=== PATIENT | female | born 1985 | race African-American/Black ===

== ENCOUNTER 2018-05-13 10:10 | Emergency (ER) | payer MEDICARE, OTHER ==
[~2018-05-13] VITALS: Ht 154.9 cm; Wt 92.5 kg
[~2018-05-13 10:10] MED LIST: AMLO5TAB7 PO; FAMO20TA5 PO; HYDR-2869 PO; OMEP20TA8 PO; QUET300T6 PO
[2018-05-13 10:20] VITALS: BP 151/91
[2018-05-13 10:36] LABS: BILIRUBIN,URINE NEGATIVE (NEG); CLARITY,URINE CLEAR; COLOR,URINE YELLOW; NITRITE,URINE NEGATIVE (NEG); PH,URINE 7.5; PROTEIN,URINE NEGATIVE (NEG-TRACE); UROBILINOGEN,URINE 0.2 mg/dL (0.2 mg/dL)
[2018-05-13 10:47] LABS: BACTERIA,URINE 0 /HPF (0-FEW); RBC,URINE 0 /HPF (0-2); SQUAMOUS EPITHELIAL CELL,UR FEW /LPF; WBC,URINE 0 /HPF (0-4)
[2018-05-13 10:56] LABS: BASO % 1 % (0-3); EOS # 0.1 x10^3/uL (0.0-0.7); EOS % 1 % (0-3); HEMATOCRIT 38.2 % (36.0-47.0); HEMOGLOBIN 13.6 g/dL (12.0-15.5); LYMPH # 1.5 x10^3/uL (1.0-4.8); LYMPH % 19 % (24-48); MEAN CORPUSCULAR HEMOGLOBIN 33 pg (25-35); MEAN CORPUSCULAR HGB CONC 36 g/dL (31-37); MEAN CORPUSCULAR VOLUME 93 fL (79-100); MONO # 0.8 x10^3/uL (0.0-1.1); MONO % 10 % (0-9); NEUT # 5.7 x10^3uL (1.8-7.7); NEUT % 70 % (31-73); PLATELET COUNT 282 x10^3/uL (140-400); RED BLOOD COUNT 4.13 x10^6/uL (3.50-5.40); RED CELL DISTRIBUTION WIDTH 15.3 % (11.5-14.5); WHITE BLOOD COUNT 8.2 x10^3/uL (4.0-11.0)
[2018-05-13 11:07] LABS: CALCIUM 8.8 mg/dL (8.5-10.1); CREATININE 0.7 mg/dL (0.6-1.0); GFR 116.6; POTASSIUM 3.6 mmol/L (3.5-5.1)
--- NOTE | 2018-05-13 12:07 | RAD ---
Indication: Vaginal bleeding TECHNIQUE: Ultrasound OB less than 14 weeks comparison: None FINDINGS: The uterus is anteverted and measures 12.8 x 6.0 x 8.6 cm (longitudinal, AP, transverse). Single intrauterine is seen. The right ovary measures 2.9 x 2.2 x 2.5 cm and demonstrates evidence of blood flow. The cervical length measures 3.4 cm in length and is closed. Placenta is anterior in position. The crown-rump length measures 4.7 cm corresponding to gestation age of 11 weeks 3 days. Heart rate is seen in the rate of 171 bpm. Left ovary is not seen secondary to overlying bowel gas. Yolk sac is not seen. IMPRESSION: 1. Single live viable intrauterine with estimated gestation age of 11 weeks 3 days and due date of 11/29/2018. 2. Left ovary not visualized. Electronically signed by: Gómez Hardwick DO (05/13/2018 12:03 PM) [id number]
--- NOTE | 2018-05-13 16:19 | PHYS DOC ---
Past Medical History Past Medical History: Bipolar, High Cholesterol, Hypertension, Schizophrenia Additional Past Medical Histor: CYST R. BREAST Past Surgical History: , Other Additional Past Surgical Histo: abd surgery, right breast cyst removal Alcohol Use: None Drug Use: Marijuana, Phencyclidine Social History Narrative: denies at this time during Adult General Chief Complaint Chief Complaint: VAGINAL BLEEDING [facility] HPI Patient is a 32 year old female who presents with vaginal bleeding in the setting of . Patient is approx 12 weeks gestation. Earlier today, the patient had an episode of spotting. She describes a scant amount of red blood that she noticed in her underpants. She then went to the restroom and urinated and did not perceive that the blood was coming from her urine. She has not had urinary symptoms. No pelvic pain. No loss of fluid or vaginal discharge. She has had no recent fever or chills. The patient is sexually active with her only. Patient has had 4 prior miscarriages, all prior to 12 weeks' gestation. She has 2 living children. She had one prior elective . Review of Systems Review of Systems Constitutional: Denies fever Eyes: Denies change in visual acuity HENT: Denies nasal congestion Respiratory: Denies cough or shortness of breath Cardiovascular: No additional information not addressed in HPI GI: Denies abdominal pain, nausea : Denies dysuria Musculoskeletal: Denies back pain Integument: Denies rash Neurologic: Denies headache All other systems were reviewed and found to be within normal limits, except as documented in this note. Allergies Allergies Allergies Coded Allergies Type Severity Reaction Last Updated Verified latex Allergy Intermediate With latex condom pt has vag d/c, itching. 01/01/16 Yes Physical Exam Physical Exam Constitutional: Well developed, well nourished, no acute distress, non-toxic appearance HENT: Normocephalic, atraumatic, bilateral external ears normal, oropharynx moist Eyes: PERRLA, EOMI, conjunctiva normal Neck: Normal range of motion, no tenderness Cardiovascular:Heart rate regular rhythm Lungs & Thorax: Bilateral breath sounds clear to auscultation Abdomen: Bowel sounds normal, soft, no tenderness Skin: Warm, dry, no erythema, no rash Back: No tenderness Extremities: No tenderness Neurologic: Alert and oriented X 3 Psychologic: Affect normal Pelvic exam: normal female external genitalia. Vaginal mucosa is moist and uninflamed. Cervical os is closed. There is no active bleeding or blood from the os. There is a scant amount of brown old-appearing blood in the vault. There is no cervical motion tenderness. No abnormal discharge. No adnexal tenderness or masses. Current Patient Data Vital Signs Vital Signs Date Time Temp Pulse Resp B/P (MAP) Pulse Ox O2 Delivery O2 Flow Rate FiO2 05/13/18 10:20 97.9 93 18 151/91 (111) 97 Room Air 97.9 Lab Values Laboratory Tests Test 05/13/18 10:20 05/13/18 10:40 Urine Collection Type Unknown Urine Color Yellow Urine Clarity Clear Urine pH 7.5 Urine Specific [place] 1.020 Urine Protein Negative mg/dL (NEG-TRACE) Urine Glucose (UA) Negative mg/dL (NEG) Urine Ketones (Stick) Negative mg/dL (NEG) Urine Blood Negative (NEG) Urine Nitrite Negative (NEG) Urine Bilirubin Negative (NEG) Urine Urobilinogen Dipstick 0.2 mg/dL (0.2 mg/dL) Urine Leukocyte Esterase Negative (NEG) Urine RBC 0 /HPF (0-2) Urine WBC 0 /HPF (0-4) Urine Squamous Epithelial Cells Few /LPF Urine Bacteria 0 /HPF (0-FEW) White Blood Count 8.2 x10^3/uL (4.0-11.0) Red Blood Count 4.13 x10^6/uL (3.50-5.40) Hemoglobin 13.6 g/dL (12.0-15.5) Hematocrit 38.2 % (36.0-47.0) Mean Corpuscular Volume 93 fL (79-100) Mean Corpuscular Hemoglobin 33 pg (25-35) Mean Corpuscular Hemoglobin Concent 36 g/dL (31-37) Red Cell Distribution Width 15.3 % (11.5-14.5) H Platelet Count 282 x10^3/uL (140-400) Neutrophils (%) (Auto) 70 % (31-73) Lymphocytes (%) (Auto) 19 % (24-48) L Monocytes (%) (Auto) 10 % (0-9) H Eosinophils (%) (Auto) 1 % (0-3) Basophils (%) (Auto) 1 % (0-3) Neutrophils # (Auto) 5.7 x10^3uL (1.8-7.7) Lymphocytes # (Auto) 1.5 x10^3/uL (1.0-4.8) Monocytes # (Auto) 0.8 x10^3/uL (0.0-1.1) Eosinophils # (Auto) 0.1 x10^3/uL (0.0-0.7) Basophils # (Auto) 0.0 x10^3/uL (0.0-0.2) Maternal Serum HCG Beta Subunit 373506 mIU/mL (0-5) H Sodium Level 136 mmol/L (136-145) Potassium Level 3.6 mmol/L (3.5-5.1) Chloride Level 102 mmol/L (98-107) Carbon Dioxide Level 24 mmol/L (21-32) Anion Gap 10 (6-14) Blood Urea Nitrogen 8 mg/dL (7-20) Creatinine 0.7 mg/dL (0.6-1.0) Estimated GFR (Cockcroft-Gault) 116.6 Glucose Level 94 mg/dL (70-99) Calcium Level 8.8 mg/dL (8.5-10.1) Laboratory Tests 05/13/18 10:40 Laboratory Tests 05/13/18 10:40 Microbiology 05/13/18 Wet Prep - Final, Complete EKG EKG [] Radiology/Procedures Radiology/Procedures FINDINGS: The uterus is anteverted and measures 12.8 x 6.0 x 8.6 cm (longitudinal, AP, transverse). Single intrauterine is seen. The right ovary measures 2.9 x 2.2 x 2.5 cm and demonstrates evidence of blood flow. The cervical length measures 3.4 cm in length and is closed. Placenta is anterior in position. The crown-rump length measures 4.7 cm corresponding to gestation age of 11 weeks 3 days. Heart rate is seen in the rate of 171 bpm. Left ovary is not seen secondary to overlying bowel gas. Yolk sac is not seen. IMPRESSION: 1. Single live viable intrauterine with estimated gestation age of 11 weeks 3 days and due date of 11/29/2018. 2. Left ovary not visualized. Course & Med Decision Making Course & Med Decision Making Pertinent Labs and Imaging studies reviewed. (See chart for details) Patient was evaluated in the emergency department for vaginal bleeding in the setting of . Her blood type was checked and found to be A+. Her hemoglobin was over 13. Her vital signs are stable. Ultrasound as above did not reveal any evidence for acute miscarriage. Pelvic exam was also benign and documented above. Exam was accompanied by a female registered nurse. Gonorrhea and chlamydia swabs were collected and sent to lab and results are pending. Patient was discharged to home. She was referred to follow up with her primary OB physician closely. Pelvic rest was discussed and all her questions were answered prior to discharge. Dragon Disclaimer Dragon Disclaimer This electronic medical record was generated, in whole or in part, using a voice recognition dictation system. Departure Departure Impression: Primary Impression: Vaginal bleeding during Disposition: HOME, SELF-CARE Condition: GOOD Referrals: MEGAN WILSON Jr, MD Patient Instructions: Vaginal Bleeding During , First Trimester DANIEL MARTIN DO May 13, 2018 16:18
[2018-05-14 23:13] LABS: GC PROBE Negative (Negative)
== END 2018-05-13 12:30 | disposition home or self-care (01) ==
LOC: ER 10:10
DX: O20.8 Other hemorrhage in early pregnancy (principal); O99.341 Other mental disorders complicating pregnancy, first trimester; F31.9 Bipolar disorder, unspecified; O16.1 Unspecified maternal hypertension, first trimester; O99.281 Endocrine, nutritional and metabolic diseases complicating pregnancy, first trimester; E78.00 Pure hypercholesterolemia, unspecified; Z98.890 Other specified postprocedural states; Z91.040 Latex allergy status; Z3A.11 11 weeks gestation of pregnancy
CPT/HCPCS: 36415; 76801; 80048; 81001; 84702; 85025; 86850; 86900; 86901; 87491; 87591; 99285; Q0111

== ENCOUNTER → 2018-06-25 | Outpatient (CLI) | payer MEDICARE, OTHER ==
--- NOTE | 2018-06-25 16:56 | RAD ---
Examination: PREG MORE THAN OR EQ TO 14 WKS History: DX: Uterine Size Date discrepancy IMP: Live IUP Lambert 17w 1d - Limited study for anatomy due to pt measuring 17 wks- Sacrum, kidneys, cerebellum and 4 ch heart were hard to visualize. Comparison/Correlation: 05/13/2018 OB ultrasound exam Findings: OB ultrasound exam was performed. The placenta is located anterior wall. Living intrauterine gestation is present with heart rate of 162 bpm. movement and cardiac activity identified. Three-vessel cord noted. Cord insertion visualized. Fluid in the bladder seen. brain and stomach visualized. kidneys, sacrum, and cerebellum as well as four-chamber heart are not well-visualized. Cephalic lie noted. Graft cervical length of 3.89 cm identified. Normal amount of amniotic fluid identified. Biparietal diameter of 3.68 cm corresponding to 17 weeks 2 days. Head circumference of 13.43 standard correspond to 17 weeks 0 day. Abdominal circumference 11.4 cm corresponding to 17 weeks 1 day. Femur length of 2.3 cm correspond to 17 weeks 1 day. Head circumference to abdominal circumference ratio is 1.18. Estimated weight is 184 g. Gestational age of 17 weeks 1 day average ultrasound age noted. EDC by ultrasound is 12/02/2018. Impression: Single living intrauterine gestation with average ultrasound age of 17 weeks 1 day. This approximates age by last menstrual period. Adequate interval growth is noted as compared previous OB ultrasound exam of 05/13/2018. Electronically signed by: Tray Rose MD (06/25/2018 4:52 PM) [id number]
== END | disposition home or self-care (01) ==
LOC: US 15:41
PROVIDERS: ATTEND Obstetrics & Gynecology
DX: O26.842 Uterine size-date discrepancy, second trimester (principal); Z3A.17 17 weeks gestation of pregnancy
CPT/HCPCS: 76805

== ENCOUNTER 2018-10-02 18:06 | Observation (INO) | payer MEDICARE, OTHER ==
[~2018-10-02 18:06] MED LIST changes: +AMLO5TAB10 PO; -AMLO5TAB7 PO; -QUET300T6 PO; +QUET300T7 PO
[2018-10-02] MEDS ORDERED: IV RINGERS,LACTATED 1000ML 1,000 ML IV SCH ×2 (18:34→20:30)
[2018-10-02 18:48] LABS: BILIRUBIN,URINE NEGATIVE (NEG); COLOR,URINE YELLOW; NITRITE,URINE NEGATIVE (NEG); PROTEIN,URINE NEGATIVE (NEG-TRACE); UROBILINOGEN,URINE 0.2 mg/dL (0.2 mg/dL)
[2018-10-02 18:53] LABS: CLARITY,URINE CLEAR
[2018-10-02 18:55] LABS: BACTERIA,URINE FEW /HPF (0-FEW); RBC,URINE RARE /HPF (0-2); SQUAMOUS EPITHELIAL CELL,UR MANY /LPF; WBC,URINE 0 /HPF (0-4)
[2018-10-02 19:02] LABS: AMPHETAMINE/METHAMPHETAMINE NEG (NEG); BARBITURATES NEG (NEG); BENZODIAZEPINES NEG (NEG); CANNABINOIDS NEG (NEG); COCAINE NEG (NEG); METHADONE NEG (NEG); OPIATES NEG (NEG); PHENCYCLIDINE NEG (NEG)
[2018-10-02] MEDS ORDERED: ZOLPIDEM 5 MG TABLET. PO PRN (20:30)
[2018-10-02] MEDS ORDERED: ACETAMINOPHEN 500 MG TABLET PO PRN (20:30)
[2018-10-02 21:31] LABS: BASO # 0.1 x10^3/uL (0.0-0.2); BASO % 1 % (0-3); EOS # 0.1 x10^3/uL (0.0-0.7); EOS % 1 % (0-3); HEMATOCRIT 34.9 % (36.0-47.0); HEMOGLOBIN 11.7 g/dL (12.0-15.5); LYMPH # 1.7 x10^3/uL (1.0-4.8); LYMPH % 15 % (24-48); MEAN CORPUSCULAR HEMOGLOBIN 32 pg (25-35); MEAN CORPUSCULAR HGB CONC 34 g/dL (31-37); MEAN CORPUSCULAR VOLUME 95 fL (79-100); MONO # 0.6 x10^3/uL (0.0-1.1); MONO % 5 % (0-9); NEUT # 9.1 x10^3uL (1.8-7.7); NEUT % 79 % (31-73); PLATELET COUNT 282 x10^3/uL (140-400); RED BLOOD COUNT 3.68 x10^6/uL (3.50-5.40); RED CELL DISTRIBUTION WIDTH 15.1 % (11.5-14.5); WHITE BLOOD COUNT 11.6 x10^3/uL (4.0-11.0)
[2018-10-02 21:42] LABS: CALCIUM 8.6 mg/dL (8.5-10.1); CREATININE 0.6 mg/dL (0.6-1.0); GFR 138.5; POTASSIUM 3.4 mmol/L (3.5-5.1)
[2018-10-02 21:54] LABS: ALBUMIN 2.3 g/dL (3.4-5.0); ALBUMIN/GLOBULIN RATIO 0.5 (1.0-1.7); TOTAL BILIRUBIN 0.1 mg/dL (0.2-1.0); TOTAL PROTEIN 6.5 g/dL (6.4-8.2)
[2018-10-02] MEDS: HYDROcodone/APAP 5/325MG 1 TAB TABLET PO PRN (21:54)
[2018-10-03] MEDS: HYDROcodone/APAP 5/325MG 1 TAB TABLET PO PRN (09:26)
== END 2018-10-03 13:18 | disposition home or self-care (01) ==
LOC: 3 SO LND 18:06
PROVIDERS: ADMIT Obstetrics & Gynecology; ATTEND Obstetrics & Gynecology
DX: O26.893 Other specified pregnancy related conditions, third trimester (principal); R10.30 Lower abdominal pain, unspecified; M54.5 Low back pain; M79.604 Pain in right leg; Z3A.31 31 weeks gestation of pregnancy
CPT/HCPCS: 36415; 80053; 80307; 81001; 85025; G0378; G0379; J7120

== ENCOUNTER 2018-11-23 09:47 | Inpatient (IN) | payer MEDICARE, MEDICAID ==
[~2018-11-23] VITALS: Ht 154.9 cm; Wt 118.4 kg
[2018-11-23] MEDS ORDERED: CITRIC ACID/SODIUM CITRATE 30 ML SOLUTION. PO ONE (10:30)
[2018-11-23] MEDS ORDERED: IV RINGERS,LACTATED 1000ML 1,000 ML IV SCH (10:30)
[2018-11-23] MEDS ORDERED: ceFAZolin SODIUM 3 GM in IV DEXTROSE 5% 100ML 100 ML IV ONE (10:30)
[2018-11-23] MEDS ORDERED: PHENYLEPHRINE in 0.9% NACL PF 1 MG/10 ML SYRINGE. IV ONE (10:47)
[2018-11-23] MEDS ORDERED: ePHEDrine PF IN SALINE 50 MG/10 ML SYRINGE. IV ONE (10:47)
[2018-11-23] MEDS ORDERED: OXYTOCIN 10 UNIT/ML VIAL. ONE ×2 (10:47→12:38)
[2018-11-23] MEDS ORDERED: fentaNYL PF VIAL 100 MCG/2 ML VIAL ONE (10:49)
[2018-11-23] MEDS ORDERED: MORPHINE PF 5 MG/10 ML VIAL. ONE (10:49)
[2018-11-23 10:57] LABS: BARBITURATES NEG (NEG); BENZODIAZEPINES NEG (NEG); CANNABINOIDS NEG (NEG); COCAINE NEG (NEG); METHADONE NEG (NEG); OPIATES NEG (NEG); PHENCYCLIDINE NEG (NEG)
[2018-11-23 11:01] LABS: AMPHETAMINE/METHAMPHETAMINE NEG (NEG)
[2018-11-23 11:02] LABS: BASO # 0.1 x10^3/uL (0.0-0.2); BASO % 1 % (0-3); EOS # 0.1 x10^3/uL (0.0-0.7); EOS % 1 % (0-3); HEMOGLOBIN 12.6 g/dL (12.0-15.5); LYMPH # 1.6 x10^3/uL (1.0-4.8); LYMPH % 14 % (24-48); MEAN CORPUSCULAR HEMOGLOBIN 31 pg (25-35); MEAN CORPUSCULAR HGB CONC 34 g/dL (31-37); MEAN CORPUSCULAR VOLUME 92 fL (79-100); MONO # 0.9 x10^3/uL (0.0-1.1); MONO % 8 % (0-9); NEUT # 8.7 x10^3uL (1.8-7.7); NEUT % 76 % (31-73); PLATELET COUNT 300 x10^3/uL (140-400); RED BLOOD COUNT 4.04 x10^6/uL (3.50-5.40); RED CELL DISTRIBUTION WIDTH 16.4 % (11.5-14.5); WHITE BLOOD COUNT 11.4 x10^3/uL (4.0-11.0)
[2018-11-23 11:35] VITALS: BP 135/83
--- NOTE | 2018-11-23 12:08 | PDOC1 ---
OB - History Hx of Present Care: Good Care Ultrasounds: Normal mid trimester US Obstetrical Complications: None Medical Complications: None Past Family/Social History * Past Medical, Surgical, Family and Obstetric Histories reviewed from chart. Rubella: Immune RPR/VDRL: Negative GBS Status: Positive HBsAG: Negative OB - Chief Complaint & HPI Date of Admission: Date of Admission: November 23, 2018 at 09:47 Chief Complaint/History : 9 Para: 2 EGA: 39 Reason for admission: section (and BTL) Indication for : desires repeat Admission Nurse Assessment Rev: Yes OB - Admission Exam Physical Exam Vitals: VS - Last 72 Hours, by Label Date Time Temp Pulse Resp B/P (MAP) Pulse Ox O2 Delivery O2 Flow Rate FiO2 11/23/18 11:35 98.1 112 16 135/83 (100) Room Air 98.1 HEENT: Normal Heart: Regular Rate Lungs: Clear Abdomen: Gravid, Non tender, Soft Extremities: Edema Reflexes: Normal Cervical Dilatation: Fingertip Effacement: 50% Station: -3 Membranes: Intact Heart Rate: Normal Accelerations: Accelerations Present Decelerations: No decelerations Contractions on Admission: >10 Minutes Apart Intensity: Mild Text A: 39 wks IUP Previous c/s Desires BTL P: Admit for repeat c/s and BTL. MEGAN WILSON Jr, MD November 23, 2018 12:08
--- NOTE | 2018-11-23 13:17 | PDOC4 ---
OB Operative Note Date: November 23, 2018 PRE OP DIAGNOSIS: Previoujs C- section POST OP DIAGNOSIS: Previous C- section OPERATION PERFORMED: R KTSC (and BTL) Surgeon Dr. Arevalo Anesthesia: Regional (Spinal) Blood Loss 600 ml Specimen and placenta OB Findings: Position (Vertex), Sex (Female), (8/9), Weight (pending), Fluid (Clear), Nuchal Cord (x1) Complications none Additional Remarks pt. MEGAN Michelle Jr, MD November 23, 2018 13:16
[2018-11-23] MEDS ORDERED: OXYTOCIN 30 UNIT/500 ML PREMIX 500 ML IV PRN (13:30)
[2018-11-23] MEDS ORDERED: ONDANSETRON PF 4 MG/2 ML VIAL. IV PRN (13:30)
[2018-11-23] MEDS ORDERED: ZOLPIDEM 5 MG TABLET. PO PRN (13:30)
[2018-11-23] MEDS ORDERED: 0.9 % SODIUM CHLORIDE 10 ML DISP.SYRIN. IV PRN (13:30)
[2018-11-23] MEDS ORDERED: MAG HYDROX/ALUMINUM HYD/SIMETH 30 ML ORAL.SUSP PO PRN (13:30)
[2018-11-23] MEDS ORDERED: KETOROLAC 30 MG/ML VIAL. IV PRN (13:30)
[2018-11-23] MEDS ORDERED: diphenhydrAMINE ORAL ELIXIR 12.5 MG/5 ML ML PO PRN (13:30)
[2018-11-23] MEDS: KETOROLAC 30 MG/ML VIAL. IV PRN ×2 (14:11→20:56)
--- NOTE | 2018-11-23 14:11 | OP ---
DATE OF SURGERY: 11/23/2018 PREOPERATIVE DIAGNOSES: 1. A 39 weeks intrauterine . 2. Previous section x 2. 3. Desires bilateral tubal ligation. POSTOPERATIVE DIAGNOSES: 1. A 39 weeks intrauterine . 2. Previous section x 2. 3. Desires bilateral tubal ligation. PROCEDURE: Repeat low transverse section and bilateral tubal ligation via modified Ivan method. SURGEON: Megan Arevalo MD ANESTHESIA: Spinal. ESTIMATED BLOOD LOSS: 600 mL. COMPLICATIONS: None. FINDINGS: Viable female , Apgars 8 and 9, weight pending. Nuchal cord x 1, 3-vessel cord placenta delivered manually intact. SUMMARY: A 33-year-old 9, para 2 at 39 weeks, presented for repeat section and bilateral tubal ligation for sterilization method. The patient was counseled on risks, benefits and expectations as well as the failure rate of bilateral tubal ligation and voiced clear understanding to proceed. DESCRIPTION OF PROCEDURE: The patient was taken to surgery suite and placed in dorsal supine position where she was prepped with ChloraPrep and draped in a sterile fashion. After adequate anesthesia, Pfannenstiel skin incision was made with scalpel down to and through the fascia. Fascia was extended laterally using curved Calix scissors. The superior edge of the fascia was grasped with two Vicente clamps and dissected free of the abdominal rectus muscles using blunt dissection along with Bovie cautery. The same process took place inferiorly. The peritoneum was grasped with 2 hemostats, entered sharply with Metzenbaum scissors. Incision was extended superiorly as well as inferiorly. There were some omental adhesions that were removed with the aid of Metzenbaum scissors and Bovie cautery. A bladder flap was created with the aid of Metzenbaum scissors using sharp dissection and Togolese pickups. The Urbano ring retractor was placed. A low transverse hysterotomy incision was made with a scalpel down to the amniotic sac. Hysterotomy incision was extended laterally and superiorly digitally. Amniotomy was performed with Allis clamp, which elicited moderate amount of clear fluid. With aid of fundal pressure, the infant's head was delivered in a smooth atraumatic manner. Nuchal cord x 1 was visualized and reduced. With additional fundal pressure, the anterior shoulder was delivered followed by posterior shoulder and rest of the female infant was delivered. was suctioned with bulb syringe orally and nasally, umbilical cord was clamped twice and cut, and viable female was handed to waiting nursing staff. Umbilical cord blood was then obtained. Three-vessel cord placenta was delivered manually intact. The uterus was then exteriorized and cleared of clot and debris with a moist lap. Hysterotomy incision was reapproximated using 1 Vicryl suture in a running locked fashion. The uterus palpated firm. Fallopian tubes and ovaries appeared normal bilaterally. Posterior cul-de-sac was cleared of clot and debris with moist lap. The hysterotomy incision was reviewed and was hemostatic. Babcocks were utilized to grasp the right fallopian tube. Tube was undermined in the mesosalpinx with the Bovie cautery. Proximal and distal ends of the fallopian tube were tied with plain gut suture. The mid-section of fallopian tube was excised with the aid of Metzenbaum scissors. Two telescoping ends were visualized and hemostatic. Same process took place on the left adnexa. The uterus was then returned to the abdomen. Pericolic gutters were cleared of clot and debris with a moist lap. The hysterotomy incision was reviewed and hemostatic. The Urbano ring retractor was removed. There were additional adhesions that were removed of the omentum away from the peritoneum and abdominal wall, which were excised with aid of Metzenbaum scissors and Bovie cautery. The peritoneum was reapproximated using 1 Vicryl suture in a running fashion. Fascia was reapproximated using Stratafix suture. The skin was reapproximated using 4-0 Vicryl suture in subcuticular manner. The Prevena wound VAC was also placed. The patient was taken to recovery room in stable condition. Sponge and needle count correct x 3. MEGAN AREVALO MD DR: TERESA/andrea JOB#: [id number] / [id number]
[2018-11-23 16:00] VITALS: BP_SYST 106; BP_SYST 134; BP_DIAS 65; BP_DIAS 75
[2018-11-23 16:45] VITALS: BP 121/78
[2018-11-23] MEDS ORDERED: FERROUS SULFATE 325 MG TABLET. PO SCH (17:00)
[2018-11-23 23:02] VITALS: BP 114/70
[2018-11-24] MEDS: SIMETHICONE 80 MG TAB.CHEW PO PRN ×2 (01:39→19:47)
[2018-11-24 04:09] LABS: BASO % 0 % (0-3); EOS # 0.1 x10^3/uL (0.0-0.7); EOS % 1 % (0-3); HEMATOCRIT 34.2 % (36.0-47.0); HEMOGLOBIN 11.5 g/dL (12.0-15.5); LYMPH # 1.1 x10^3/uL (1.0-4.8); LYMPH % 13 % (24-48); MEAN CORPUSCULAR HEMOGLOBIN 31 pg (25-35); MEAN CORPUSCULAR HGB CONC 34 g/dL (31-37); MEAN CORPUSCULAR VOLUME 92 fL (79-100); MONO # 0.8 x10^3/uL (0.0-1.1); MONO % 10 % (0-9); NEUT # 6.6 x10^3uL (1.8-7.7); NEUT % 76 % (31-73); PLATELET COUNT 261 x10^3/uL (140-400); RED BLOOD COUNT 3.71 x10^6/uL (3.50-5.40); RED CELL DISTRIBUTION WIDTH 15.9 % (11.5-14.5); WHITE BLOOD COUNT 8.6 x10^3/uL (4.0-11.0)
[2018-11-24] MEDS: DOCUSATE SODIUM 100 MG CAPSULE. PO PRN ×2 (04:40→11:27)
[2018-11-24] MEDS: oxyCODONE/APAP 5/325 1 TAB TABLET PO PRN ×4 (04:40→20:21)
[2018-11-24 05:00] VITALS: BP 128/75
[2018-11-24] MEDS: IBUPROFEN 400 MG TABLET. PO PRN ×3 (05:04→19:47)
[2018-11-24 11:46] VITALS: BP 139/91
--- NOTE | 2018-11-24 11:48 | NUR ---
Rn notified of b/p of 139/91
--- NOTE | 2018-11-24 13:04 | PDOC ---
OB Progress Note Date of Service 11/24/18 Time of Evaluation 1300 Notes Pt. feeling well. Pain controlled. Lab Laboratory Tests Test 11/23/18 10:05 11/23/18 10:48 11/23/18 11:35 11/24/18 03:15 Urine Opiates Screen Neg (NEG) Urine Methadone Screen Neg (NEG) Urine Barbiturates Neg (NEG) Urine Phencyclidine Screen Neg (NEG) Urine Amphetamine/Methamphetamine Neg (NEG) Urine Benzodiazepines Screen Neg (NEG) Urine Cocaine Screen Neg (NEG) Urine Cannabinoids Screen Neg (NEG) Urine Ethyl Alcohol Neg (NEG) White Blood Count 11.4 x10^3/uL (4.0-11.0) 8.6 x10^3/uL (4.0-11.0) Red Blood Count 4.04 x10^6/uL (3.50-5.40) 3.71 x10^6/uL (3.50-5.40) Hemoglobin 12.6 g/dL (12.0-15.5) 11.5 g/dL (12.0-15.5) Hematocrit 37.0 % (36.0-47.0) 34.2 % (36.0-47.0) Mean Corpuscular Volume 92 fL (79-100) 92 fL (79-100) Mean Corpuscular Hemoglobin 31 pg (25-35) 31 pg (25-35) Mean Corpuscular Hemoglobin Concent 34 g/dL (31-37) 34 g/dL (31-37) Red Cell Distribution Width 16.4 % (11.5-14.5) 15.9 % (11.5-14.5) Platelet Count 300 x10^3/uL (140-400) 261 x10^3/uL (140-400) Neutrophils (%) (Auto) 76 % (31-73) 76 % (31-73) Lymphocytes (%) (Auto) 14 % (24-48) 13 % (24-48) Monocytes (%) (Auto) 8 % (0-9) 10 % (0-9) Eosinophils (%) (Auto) 1 % (0-3) 1 % (0-3) Basophils (%) (Auto) 1 % (0-3) 0 % (0-3) Neutrophils # (Auto) 8.7 x10^3uL (1.8-7.7) 6.6 x10^3uL (1.8-7.7) Lymphocytes # (Auto) 1.6 x10^3/uL (1.0-4.8) 1.1 x10^3/uL (1.0-4.8) Monocytes # (Auto) 0.9 x10^3/uL (0.0-1.1) 0.8 x10^3/uL (0.0-1.1) Eosinophils # (Auto) 0.1 x10^3/uL (0.0-0.7) 0.1 x10^3/uL (0.0-0.7) Basophils # (Auto) 0.1 x10^3/uL (0.0-0.2) 0.0 x10^3/uL (0.0-0.2) Treponema pallidum Antibody Nonreactive (Nonreactive) Laboratory Tests Test 11/24/18 03:15 White Blood Count 8.6 x10^3/uL (4.0-11.0) Red Blood Count 3.71 x10^6/uL (3.50-5.40) Hemoglobin 11.5 g/dL (12.0-15.5) Hematocrit 34.2 % (36.0-47.0) Mean Corpuscular Volume 92 fL (79-100) Mean Corpuscular Hemoglobin 31 pg (25-35) Mean Corpuscular Hemoglobin Concent 34 g/dL (31-37) Red Cell Distribution Width 15.9 % (11.5-14.5) Platelet Count 261 x10^3/uL (140-400) Neutrophils (%) (Auto) 76 % (31-73) Lymphocytes (%) (Auto) 13 % (24-48) Monocytes (%) (Auto) 10 % (0-9) Eosinophils (%) (Auto) 1 % (0-3) Basophils (%) (Auto) 0 % (0-3) Neutrophils # (Auto) 6.6 x10^3uL (1.8-7.7) Lymphocytes # (Auto) 1.1 x10^3/uL (1.0-4.8) Monocytes # (Auto) 0.8 x10^3/uL (0.0-1.1) Eosinophils # (Auto) 0.1 x10^3/uL (0.0-0.7) Basophils # (Auto) 0.0 x10^3/uL (0.0-0.2) Medications Current Medications Ringer's Solution 1,000 ml @ 125 mls/hr Q8H IV Last administered on 11/23/18at 15:55; Start 11/23/18 at 10:30 Cefazolin Sodium 3 gm/Dextrose 100 ml @ 200 mls/hr 1X ONCE IV ; Start 11/23/18 at 10:30; Stop 11/23/18 at 10:59; Status DC Citric Acid/ Sodium Citrate (Bicitra) 30 ml 1X ONCE PO Last administered on 11/23/18at 11:56; Start 11/23/18 at 10:30; Stop 11/23/18 at 10:39; Status DC Ketorolac Tromethamine (Toradol 30mg Vial) 30 mg PRN Q6HRS PRN IV PAIN Last administered on 11/23/18at 20:56; Start 11/23/18 at 10:45; Stop 11/28/18 at 10:44 Phenylephrine HCl (PHENYLEPHRINE in 0.9% NACL PF) 1 mg STK-MED ONCE IV ; Start 11/23/18 at 10:47; Stop 11/23/18 at 10:48; Status DC Ephedrine Sulfate (ePHEDrine PF IN SALINE SYRINGE) 50 mg STK-MED ONCE IV ; Start 11/23/18 at 10:47; Stop 11/23/18 at 10:48; Status DC Oxytocin (Pitocin) 10 unit STK-MED ONCE .ROUTE ; Start 11/23/18 at 10:47; Stop 11/23/18 at 10:48; Status DC Fentanyl Citrate (Fentanyl 2ml Vial) 100 mcg STK-MED ONCE .ROUTE ; Start 11/23/18 at 10:49; Stop 11/23/18 at 10:50; Status DC Morphine Sulfate (Morphine Preservative Free) 5 mg STK-MED ONCE .ROUTE ; Start 11/23/18 at 10:49; Stop 11/23/18 at 10:50; Status DC Oxytocin (Pitocin) 10 unit STK-MED ONCE .ROUTE ; Start 11/23/18 at 12:38; Stop 11/23/18 at 12:39; Status DC Sodium Chloride (Normal Saline Flush) 3 ml QSHIFT PRN IV AFTER MEDS AND BLOOD DRAWS; Start 11/23/18 at 13:30 Oxytocin/Sodium Chloride 500 ml @ 125 mls/hr CONT PRN IV EXCESSIVE POST- BLEEDING; Start 11/23/18 at 13:30; Stop 11/23/18 at 21:29; Status DC Ibuprofen (Motrin) 800 mg PRN Q4HRS PRN PO INFLAMMATION Last administered on 11/24/18at 11:28; Start 11/23/18 at 13:30 Ondansetron HCl (Zofran) 4 mg PRN Q6HRS PRN IV NAUSEA/VOMITING; Start 11/23/18 at 13:30 Docusate Sodium (Colace) 100 mg PRN BID PRN PO CONSTIPATION Last administered on 11/24/18at 11:27; Start 11/23/18 at 13:30 Al Hydroxide/Mg Hydroxide (Mylanta Plus Xs) 30 ml PRN Q4HRS PRN PO HEARTBURN / GAS; Start 11/23/18 at 13:30 Simethicone (Gas-X) 80 mg PRN AFTMEALHC PRN PO GAS / BLOATING Last administered on 11/24/18at 01:39; Start 11/23/18 at 13:30 Diphenhydramine HCl (Benadryl Oral Elixir) 12.5 mg PRN Q6HRS PRN PO ITCHING; Start 11/23/18 at 13:30 Ferrous Sulfate (Feosol) 325 mg BIDWMEALS PO ; Start 11/23/18 at 17:00; Stop 11/24/18 at 06:19; Status DC Zolpidem Tartrate (Ambien) 5 mg PRN QHS PRN PO INSOMNIA, MAY REPEAT X1; Start 11/23/18 at 13:30 Oxycodone/ Acetaminophen (Percocet 5/325) 2 tab PRN Q4HRS PRN PO MODERATE PAIN, SEVERE PAIN Last administered on 11/24/18at 11:28; Start 11/23/18 at 13:30 Ketorolac Tromethamine (Toradol 30mg Vial) 30 mg PRN Q6HRS PRN IV PAIN; Start 11/23/18 at 13:30; Stop 11/24/18 at 12:12; Status DC Active Scripts Active Omeprazole 20 Mg Tablet.dr 1 Tab PO DAILY Famotidine 20 Mg Tablet 20 Mg PO BID 30 Days Reported Amlodipine Besylate 5 Mg Tablet 5 Mg PO DAILY Seroquel Xr (Quetiapine Fumarate) 300 Mg Tab.er.24h 300 Mg PO HS Exam Abd: soft, mild tenderness, fundus firm Prevena in place Assessment POD#1 s/p repeat c/s and BTL Plan of Care: Continue current Tx, Mgmt PEGMEGAN ESTRADA Jr, MD November 24, 2018 13:04
--- NOTE | 2018-11-24 15:46 | NUR ---
SS following up with referral regarding "maternal history of bipolar, schizophrenia; please assess need for mental health and other resources, thanks!" SS contacted the PAT team and made request for psychological assessment and evaluation. Jewel from the PAT team met with 's mother for assessment and provided resources. Jewel contacted SS and reported that infant's mother denied history of substance use. Per records pt UDS was negative. Jewel reported that infant's mother has open case at the [facility] and has a medication appointment with Dr. Luke at 1100 on 12/08/2018. Jewel reported that he spoke with infants mother about being compliant with therapy appointments. Jewel reported that in regards to mental health stability infants mother was safe to return to home and follow up with the [facility]. Infant RN notified.
[2018-11-24] MEDS ORDERED: BISACODYL 10 MG SUPP.RECT. PR PRN (16:00)
[2018-11-24 23:23] VITALS: BP 120/71
[2018-11-25] MEDS: oxyCODONE/APAP 5/325 1 TAB TABLET PO PRN ×5 (00:51→21:18)
[2018-11-25] MEDS: IBUPROFEN 400 MG TABLET. PO PRN ×3 (04:41→18:15)
[2018-11-25 05:56] VITALS: BP 132/93
--- NOTE | 2018-11-25 09:28 | PDOC ---
OB Progress Note Date of Service 11/25/18 Time of Evaluation 0930 Notes Pt. feeling well. No complaints. Lab Laboratory Tests Test 11/23/18 10:05 11/23/18 10:48 11/23/18 11:35 11/24/18 03:15 Urine Opiates Screen Neg (NEG) Urine Methadone Screen Neg (NEG) Urine Barbiturates Neg (NEG) Urine Phencyclidine Screen Neg (NEG) Urine Amphetamine/Methamphetamine Neg (NEG) Urine Benzodiazepines Screen Neg (NEG) Urine Cocaine Screen Neg (NEG) Urine Cannabinoids Screen Neg (NEG) Urine Ethyl Alcohol Neg (NEG) White Blood Count 11.4 x10^3/uL (4.0-11.0) 8.6 x10^3/uL (4.0-11.0) Red Blood Count 4.04 x10^6/uL (3.50-5.40) 3.71 x10^6/uL (3.50-5.40) Hemoglobin 12.6 g/dL (12.0-15.5) 11.5 g/dL (12.0-15.5) Hematocrit 37.0 % (36.0-47.0) 34.2 % (36.0-47.0) Mean Corpuscular Volume 92 fL (79-100) 92 fL (79-100) Mean Corpuscular Hemoglobin 31 pg (25-35) 31 pg (25-35) Mean Corpuscular Hemoglobin Concent 34 g/dL (31-37) 34 g/dL (31-37) Red Cell Distribution Width 16.4 % (11.5-14.5) 15.9 % (11.5-14.5) Platelet Count 300 x10^3/uL (140-400) 261 x10^3/uL (140-400) Neutrophils (%) (Auto) 76 % (31-73) 76 % (31-73) Lymphocytes (%) (Auto) 14 % (24-48) 13 % (24-48) Monocytes (%) (Auto) 8 % (0-9) 10 % (0-9) Eosinophils (%) (Auto) 1 % (0-3) 1 % (0-3) Basophils (%) (Auto) 1 % (0-3) 0 % (0-3) Neutrophils # (Auto) 8.7 x10^3uL (1.8-7.7) 6.6 x10^3uL (1.8-7.7) Lymphocytes # (Auto) 1.6 x10^3/uL (1.0-4.8) 1.1 x10^3/uL (1.0-4.8) Monocytes # (Auto) 0.9 x10^3/uL (0.0-1.1) 0.8 x10^3/uL (0.0-1.1) Eosinophils # (Auto) 0.1 x10^3/uL (0.0-0.7) 0.1 x10^3/uL (0.0-0.7) Basophils # (Auto) 0.1 x10^3/uL (0.0-0.2) 0.0 x10^3/uL (0.0-0.2) Treponema pallidum Antibody Nonreactive (Nonreactive) Medications Current Medications Ringer's Solution 1,000 ml @ 125 mls/hr Q8H IV Last administered on 11/23/18at 15:55; Start 11/23/18 at 10:30 Cefazolin Sodium 3 gm/Dextrose 100 ml @ 200 mls/hr 1X ONCE IV ; Start 11/23/18 at 10:30; Stop 11/23/18 at 10:59; Status DC Citric Acid/ Sodium Citrate (Bicitra) 30 ml 1X ONCE PO Last administered on 11/23/18at 11:56; Start 11/23/18 at 10:30; Stop 11/23/18 at 10:39; Status DC Ketorolac Tromethamine (Toradol 30mg Vial) 30 mg PRN Q6HRS PRN IV PAIN Last administered on 11/23/18at 20:56; Start 11/23/18 at 10:45; Stop 11/28/18 at 10:44 Phenylephrine HCl (PHENYLEPHRINE in 0.9% NACL PF) 1 mg STK-MED ONCE IV ; Start 11/23/18 at 10:47; Stop 11/23/18 at 10:48; Status DC Ephedrine Sulfate (ePHEDrine PF IN SALINE SYRINGE) 50 mg STK-MED ONCE IV ; Start 11/23/18 at 10:47; Stop 11/23/18 at 10:48; Status DC Oxytocin (Pitocin) 10 unit STK-MED ONCE .ROUTE ; Start 11/23/18 at 10:47; Stop 11/23/18 at 10:48; Status DC Fentanyl Citrate (Fentanyl 2ml Vial) 100 mcg STK-MED ONCE .ROUTE ; Start 11/23/18 at 10:49; Stop 11/23/18 at 10:50; Status DC Morphine Sulfate (Morphine Preservative Free) 5 mg STK-MED ONCE .ROUTE ; Start 11/23/18 at 10:49; Stop 11/23/18 at 10:50; Status DC Oxytocin (Pitocin) 10 unit STK-MED ONCE .ROUTE ; Start 11/23/18 at 12:38; Stop 11/23/18 at 12:39; Status DC Sodium Chloride (Normal Saline Flush) 3 ml QSHIFT PRN IV AFTER MEDS AND BLOOD DRAWS; Start 11/23/18 at 13:30 Oxytocin/Sodium Chloride 500 ml @ 125 mls/hr CONT PRN IV EXCESSIVE POST- BLEEDING; Start 11/23/18 at 13:30; Stop 11/23/18 at 21:29; Status DC Ibuprofen (Motrin) 800 mg PRN Q4HRS PRN PO INFLAMMATION Last administered on 11/25/18at 09:04; Start 11/23/18 at 13:30 Ondansetron HCl (Zofran) 4 mg PRN Q6HRS PRN IV NAUSEA/VOMITING; Start 11/23/18 at 13:30 Docusate Sodium (Colace) 100 mg PRN BID PRN PO CONSTIPATION Last administered on 11/24/18at 11:27; Start 11/23/18 at 13:30 Al Hydroxide/Mg Hydroxide (Mylanta Plus Xs) 30 ml PRN Q4HRS PRN PO HEARTBURN / GAS; Start 11/23/18 at 13:30 Simethicone (Gas-X) 80 mg PRN AFTMEALHC PRN PO GAS / BLOATING Last administered on 11/24/18at 19:47; Start 11/23/18 at 13:30 Diphenhydramine HCl (Benadryl Oral Elixir) 12.5 mg PRN Q6HRS PRN PO ITCHING; Start 11/23/18 at 13:30 Ferrous Sulfate (Feosol) 325 mg BIDWMEALS PO ; Start 11/23/18 at 17:00; Stop 11/24/18 at 06:19; Status DC Zolpidem Tartrate (Ambien) 5 mg PRN QHS PRN PO INSOMNIA, MAY REPEAT X1; Start 11/23/18 at 13:30 Oxycodone/ Acetaminophen (Percocet 5/325) 2 tab PRN Q4HRS PRN PO MODERATE PAIN, SEVERE PAIN Last administered on 11/25/18at 09:04; Start 11/23/18 at 13:30 Ketorolac Tromethamine (Toradol 30mg Vial) 30 mg PRN Q6HRS PRN IV PAIN; Start 11/23/18 at 13:30; Stop 11/24/18 at 12:12; Status DC Bisacodyl (Dulcolax Supp) 10 mg PRN DAILY PRN HI CONSTIPATION Last administered on 11/24/18at 16:28; Start 11/24/18 at 16:00 Active Scripts Active Omeprazole 20 Mg Tablet.dr 1 Tab PO DAILY Famotidine 20 Mg Tablet 20 Mg PO BID 30 Days Reported Amlodipine Besylate 5 Mg Tablet 5 Mg PO DAILY Seroquel Xr (Quetiapine Fumarate) 300 Mg Tab.er.24h 300 Mg PO HS Exam Abd:soft, mild tenderness, fundus firm Prevena in place Assessment POD#2 s/p repeat c/s and BTL Plan of Care: Continue current Cristel, MEGAN Almonte Jr, MD November 25, 2018 09:28
[2018-11-25 11:35] VITALS: BP 131/80
[2018-11-25 18:27] VITALS: BP 130/84
[2018-11-25 23:00] VITALS: BP 122/63
[2018-11-26] MEDS: oxyCODONE/APAP 5/325 1 TAB TABLET PO PRN ×3 (01:07→11:01)
[2018-11-26] MEDS: IBUPROFEN 400 MG TABLET. PO PRN ×2 (01:08→05:34)
[2018-11-26 05:34] VITALS: BP 131/88
--- NOTE | 2018-11-26 08:31 | PDOC3 ---
OB DISCHARGE SUMMARY DATE OF ADMISSION: 11/23/18 DATE OF DISCHARGE: 11/26/18 REASON FOR ADMISSION: section INTRAPARTUM PROCEDURES: : Low Cerv Trans PROCEDURES: Tubal Ligation DISCHARGE DIAGNOSIS: Term Delivered DISCHARGE INFORMATION: Activity (ad adarsh), Diet (regular), Instructions (pelvic rest x 6 wks, no driving x 2 wks, no lifting > 20 lbs. x 4 wks) HOSPITAL COURSE Term gestation presented to for repeat c/s and BTL. She had uncomplicated repeat c/s. MEGAN WILSON Jr, MD November 26, 2018 08:31
[2018-11-26] MEDS ORDERED: DOCU-109 PO (08:34)
[2018-11-26] MEDS ORDERED: OXYC1TAB15 PO (08:34)
[2018-11-26] MEDS ORDERED: IBUP-1027 PO (08:34)
--- NOTE | 2018-11-26 08:34 | DISCH ---
DISCHARGE INSTRUCTIONS Condition on Discharge Condition on Discharge: Stable Activity After Discharge Activity Instructions for Disc: Activity as tolerated Lifting Instructions after Dis: No heavy lifting Driving Instructions after Dis: No driving for 2 weeks Diet after Discharge Diet after Discharge: Regular Contacting the DRJaimee after DC Call your doctor for: Concerns you may have Follow-Up Follow up with: Dr. Arevalo in 2 weeks. MEGAN AREVALO Jr, MD November 26, 2018 08:34
--- NOTE | 2018-11-26 09:09 | PATHOLOGY ---
[facility] Accession Number: [id number] . 01 Material submitted: . PART A: fallopian tube - RIGHT FALLOPIAN TUBE. Modifiers: right PART B: fallopian tube - LEFT FALLOPIAN TUBE. Modifiers: left . 01 Clinical history: . Repeat , bilateral tubal ligation . 02 Diagnosis: A. Right tubal ligation: - Segment of fallopian tube confirmed. . B. Left tubal ligation: - Segment of fallopian tube confirmed. . (JPM:luisa; 11/25/2018) MBR/11/25/2018 . 02 Electronically signed: . Jeff Saba MD, Pathologist NPI- [id number] . 01 Gross description: . A. The specimen is received in formalin, labeled "Constanza Jean, right fallopian tube", is a cylindrical segment of nonfimbriated fallopian tube measuring 1.0 cm in length and up to 0.4 cm in diameter. The serosa is larson-pink and smooth. The specimen is trisected to reveal a well-defined. The specimen is entirely submitted in A1. . B. The specimen is received in formalin, labeled "Constanza Jean, left fallopian tube", is a cylindrical segment of nonfimbriated fallopian tube measuring 1.7 cm in length and up to 0.4 cm in diameter. The serosa is larson-pink and smooth. The specimen is serially sectioned to reveal a well-defined. The specimen is entirely submitted in B1. ([facility]; 11/24/2018) SHS/SHS . 02 Pathologist provided ICD-10: Z30.2 . 02 CPT . 340985, 539509 Specimen Comment: A courtesy copy of this report has been sent to Specimen Comment: [phone]. Specimen Comment: Report sent to Performed at: [address] [facility] [address], [place] [id number] MD Neftaly Erickson MD Phone: [phone] Performed at: 02 [facility] [place] [address] [place], [place] [id number] MD Jeff Saba MD Phone: [phone]
[2018-11-26 10:12] VITALS: BP 131/82
[2018-11-26] MEDS: DOCUSATE SODIUM 100 MG CAPSULE. PO PRN (11:01)
== END 2018-11-26 13:18 | disposition home or self-care (01) | DRG 784 ==
LOC: 3 SO LND 09:47 → 3 NORTH 17:52
PROVIDERS: ADMIT Obstetrics & Gynecology; ATTEND Obstetrics & Gynecology
PROC: 10D00Z1 Extraction of Products of Conception, Low, Open Approach (ICD-10-PCS; principal; 2018-11-23)
PROC: 0UB70ZZ Excision of Bilateral Fallopian Tubes, Open Approach (ICD-10-PCS; 2018-11-23)
DX: O34.211 Maternal care for low transverse scar from previous cesarean delivery (principal); R71.0 Precipitous drop in hematocrit; O69.81X0 Labor and delivery complicated by cord around neck, without compression, not applicable or unspecified; Z3A.39 39 weeks gestation of pregnancy; Z37.0 Single live birth; Z30.2 Encounter for sterilization; Z91.040 Latex allergy status
CPT/HCPCS: 36415; 80307; 85025; 86592; 86850; 86900; 86901; 88302; J0171; J1885; J2270; J2370; J2590; J3010; J7120